=== PATIENT | female | born 1995 | race Two or more races ===

== ENCOUNTER 2020-06-01 23:40 | Emergency (ER) | payer OTHER ==
[~2020-06-01] VITALS: Ht 167.6 cm; Wt 73.4 kg
--- NOTE | 2020-06-02 00:57 | RAD ---
PA and lateral chest radiographs 06/02/2020 CLINICAL HISTORY: Shortness of breath. PA and lateral digital radiographs of the chest were obtained. No previous studies are available for comparison. The cardiac and mediastinal silhouettes are within normal limits in size and configuratio n. No pulmonary infiltrate is seen. No pleural effusion or pneumothorax is noted. Minimal S-shaped cu rvature of the thoracolumbar spine is seen. IMPRESSION: No acute abnormality is seen. Electronically signed by: Jose D Batres MD (06/02/2020 12:55 AM) [id number]
[2020-06-02 01:29] VITALS: BP 138/72
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
== END 2020-06-02 01:50 | disposition home or self-care (01) ==
LOC: ER 23:40
DX: F41.9 Anxiety disorder, unspecified (principal); R06.02 Shortness of breath
CPT/HCPCS: 71046; 81025; 99283